=== PATIENT | female | born 1980 | race Caucasian/White ===

== ENCOUNTER 2024-01-21 13:13 | Emergency (ER) | payer MEDICAID ==
[~2024-01-21] VITALS: Ht 170.2 cm; Wt 75.6 kg
[2024-01-21 13:17] VITALS: TEMP 97.6
[2024-01-21 13:49] LABS: BASOPHILS # (AUTO) 0.1 X10'3 (0-0.2); BASOPHILS % (AUTO) 0.4 % (0-1); EOSINOPHILS # (AUTO) 0.1 X10'3 (0-0.9); EOSINOPHILS % (AUTO) 0.5 % (0-6); HEMOGLOBIN 14.8 g/dl (12.0-16.0); LYMPHOCYTES # (AUTO) 1.6 X10'3 (1.1-4.8); LYMPHOCYTES % (AUTO) 12.4 % (21-51); MEAN CORPUSCULAR HGB CONC 33.5 g/dL (33.0-36.5); MEAN CORPUSCULAR VOLUME 92.4 FL (78-98); MEAN PLATELET VOLUME 6.9 FL (7.4-10.4); MONOCYTES # (AUTO) 0.8 X10'3 (0-0.9); MONOCYTES % (AUTO) 6.5 % (2-12); NEUTROPHILS # (AUTO) 10.3 X10'3 (1.8-7.7); NEUTROPHILS % (AUTO) 80.2 % (42-75); PLATELET COUNT 349 X10'3 (140-440); RED BLOOD COUNT 4.76 X10'6 (4.20-5.60); WHITE BLOOD COUNT 12.9 X10'3 (4.5-11.0)
[2024-01-21 13:58] LABS: ALANINE AMINOTRANSFERASE 19 U/L (12-78); ALBUMIN 3.7 G/DL (3.4-5.0); ALBUMIN/GLOBULIN RATIO 1.1 (1.1-1.5); ALKALINE PHOSPHATASE 59 IU/L (46-116); ANION GAP 9 (8-16); ASPARTATE AMINO TRANSFERASE 15 U/L (10-37); BILIRUBIN,TOTAL 0.5 MG/DL (0.1-1.0); BLOOD UREA NITROGEN 9 MG/DL (7-18); CALCIUM 8.9 MG/DL (8.5-10.1); CHLORIDE 104 MMOL/L (99-107); CREATININE 0.69 MG/DL (0.40-0.90); GLUCOSE 105 MG/DL (70-104); LIPASE 36 U/L (16-77); POTASSIUM 3.8 MMOL/L (3.5-5.1); SODIUM 139 MMOL/L (135-145); TOTAL CARBON DIOXIDE 26.4 MMOL/L (24-32); TOTAL PROTEIN 7.2 G/DL (6.4-8.2); eCRCL 102 ML/MIN; eGFR > 90 ML/MIN
[2024-01-21 14:46] LABS: FREE T4 (FREE THYROXINE) 1.01 NG/DL (0.73-1.40); THYROID STIMULATING HORMONE 0.52 ulU/ml (0.34-4.50)
[2024-01-21 16:08] LABS: BILIRUBIN,URINE SMALL (Neg); CLARITY,URINE SLIGHTLY CLOUDY (Clear); COLOR,URINE YELLOW (Yellow); GLUCOSE, URINE NEGATIVE (Neg); KETONES,URINE 40 mg/dl (Neg); LEUKOCYTE ESTERASE ,URINE TRACE (Neg); NITRITES, URINE NEGATIVE (Neg); OCCULT BLOOD,URINE SMALL (Neg); PH,URINE 5.5 (4.8-8.0); PROTEIN,URINE NEGATIVE (Neg); UROBILINOGEN,URINE 0.2 E.U/dL (0.2-1.0)
[2024-01-21 16:14] LABS: MUCUS STRANDS MODERATE /LPF (Neg); SQUAMOUS EPITHELIAL CELL,UR MANY /LPF (FEW); UA COLLECTION TYPE CLN CATCH MIDSTREAM
[2024-01-21 16:15] LABS: BACTERIA,URINE 1+ /HPF (Neg)
[2024-01-21 16:23] LABS: URINE HCG NEGATIVE (NEG)
[2024-01-21] MEDS: normal saline 1000ML IV soln IVB ONE (16:42)
[2024-01-21] MEDS: loperamide 2mg capsule PO ONE (16:42)
[2024-01-21] MEDS: glycopyrrolate 0.2mg/ml inj IV ONE (16:42)
[2024-01-21] MEDS: normal saline 1000ml 1,000 ML IV ONE (16:42)
[2024-01-21] MEDS ORDERED: ONDA-243 PO (17:23)
[2024-01-21] MEDS ORDERED: DICY10CA88 PO (17:23)
[2024-01-21 18:20] VITALS: BP 100/64; PULSE 91; RESP 16; O2SAT 98
== END 2024-01-21 18:22 | disposition home or self-care (01) ==
LOC: ER 13:15
DX: R19.7 Diarrhea, unspecified (principal); E86.0 Dehydration; E03.9 Hypothyroidism, unspecified; F41.9 Anxiety disorder, unspecified; F32.A Depression, unspecified; Z88.0 Allergy status to penicillin; Z88.1 Allergy status to other antibiotic agents; Z79.899 Other long term (current) drug therapy
CPT/HCPCS: 36415; 71045; 76700; 80053; 81001; 81025; 83690; 84145; 84439; 84443; 85025; 96361; 96374; 99285; J3490; J7030